=== PATIENT | female | born 1975 ===

== ENCOUNTER → 2017-06-20 | Outpatient (REF) ==
[2017-06-20 07:16] LABS: BASO % 0.2 % (0.0-2.0); EOS % 0.1 % (0-4.0); GRAN % 81.1 % (42.2-75.2); LYMPH # 2.3 (1.2-3.4); LYMPH % 12.5 % (20.0-51.0); MEAN CELL VOLUME 87 fl (80.0-100.0); MEAN CORPUSCULAR HGB CONC 32 g/dl (33.0-37.0); MEAN PLATELET VOLUME 10.1 fl (7.4-10.4); MONO % 5.6 % (1.7-9.3); PLATELET COUNT 267 K/mm3 (130-400); RED BLOOD COUNT 3.52 M/mm3 (4.10-5.30); WHITE BLOOD COUNT 18.5 K/mm3 (4.8-10.8)
[2017-06-20 07:23] LABS: HEMATOCRIT 30.5 % (37.0-47.0); HEMOGLOBIN 9.8 g/dl (12.5-16.0); MEAN CORPUSCULAR HEMOGLOBIN 28 pg (27.0-31.0)
== END ==
LOC: ZMSC 07:02
PROVIDERS: Obstetrics & Gynecology
DX: Z02.89 Encounter for other administrative examinations (principal)